=== PATIENT | female | born 1975 | race Caucasian/White ===

== ENCOUNTER 2016-10-20 17:46 | Inpatient (IN) | payer OTHER ==
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
--- NOTE | ~2016-10-20 | PN ---
Unit #: [id number] #: [id number] Patient: GEMINI BAER [id number] [facility] [address] [place] [address] [id number] I MR#: [id number] NAME: GEMINI BAER ROOM: P208 Age: 40 Sex: F Admission Date: 10/20/2016 : 1975 Attending Physician: Tristen Francisco M.D. Admitting Physician: Tristen Francisco M.D. Primary Care Physician: Generic Doctor Not In System [facility] PROGRESS NOTES DATE 10/21/2016 DISCUSSION Gemini Baer is a 40-year-old female, seen on 10/21/2016. The patient interviewed, chart reviewed, and obtained information from the nursing staff. The patient's mood sad, dysphoric, withdrawn, isolative, guarded. The patient's vital signs, 98.4, 60, and 92/58. Height, 5 feet 1 inch. REVIEW OF SYSTEMS Complete review of systems unremarkable. MENTAL STATUS EXAMINATION General appearance: Patient dressed casually. Attention span and concentration, fair. Oriented to time, place, and person. Mood and affect, sad and depressed. Speech, monotone. Thought process, concrete. The patient denied any thoughts of harming self or others but having suicidal ideations. Recent and remote memory, poor. Insight and judgment, poor. DIAGNOSES 1. Mood disorder, NOS. 2. Rule out major depressive disorder. 3. Polysubstance abuse. ASSESSMENT/PLAN Advised to continue with the current medication and therapeutic protocol and if needed consider further adjustment of medication. Dictated by... Mahsa Azevedo/leslie TD: 10/23/2016 10:47 JOB #: [id number] Unit #: [id number] #: [id number] Patient: GEMINI BAER PROGRESS NOTES Page 1 of 1 X Tristen Francisco MD X PROGRESS NOTE
--- NOTE | ~2016-10-20 | PN ---
Unit #: [id number] #: [id number] Patient: GEMINI BAER [id number] [facility] [address] [place] [address] [id number] I MR#: [id number] NAME: GEMINI BAER ROOM: [facility]8 Age: 40 Sex: F Admission Date: 10/20/2016 : 1975 Attending Physician: Tristen Francisco M.D. Admitting Physician: Tristen Francisco M.D. Primary Care Physician: Generic Doctor Not In System [facility] PROGRESS NOTES DATE 10/22/2016 DISCUSSION Gemini Baer is a 40-year-old female, seen on 10/22/2016. The patient interviewed, chart reviewed, and obtained information from the nursing staff. The patient's mood was sad and dysphoric, withdrawn, isolative, guarded, paranoid. The patient's vital signs are stable. The patient still reporting having withdrawal symptoms and depressed mood and anxiousness. REVIEW OF SYSTEMS Complete review of systems unremarkable. MENTAL STATUS EXAMINATION General appearance: Patient dressed casually. Attention span and concentration, fair. Oriented to place and person. Mood and affect, sad and dysphoric. Speech, monotone. Thought process, concrete. The patient denied any thoughts of harming self or others. Recent and remote memory, poor. Insight and judgment, poor. DIAGNOSIS Mood disorder, NOS. ASSESSMENT/PLAN Advised to continue with the current medication and therapeutic protocol and if needed consider further adjustment of medication. Dictated by... Mahsa Azevedo/leslie TD: 10/23/2016 11:36 JOB #: [id number] Unit #: [id number] #: [id number] Patient: GEMINI BAER PROGRESS NOTES Page 1 of 1 X Tristen Francisco MD PROGRESS NOTE
--- NOTE | ~2016-10-20 | DS ---
Unit #: [id number] #: [id number] Patient: VAL PEREZ [id number] [facility] [address] [place] [address] [id number] I MR#: [id number] NAME: VAL PEREZ ROOM: [facility] Age: 40 Sex: F Admission Date: 10/20/2016 : 1975 Discharge Date: 10/23/2016 Attending Physician: Tristen Francisco M.D. Primary Care Physician: Generic Doctor Not In System DISCHARGE SUMMARY REASON FOR ADMISSION Substance abuse and depression. DIAGNOSTIC STUDIES LABORATORY RESULTS: Unremarkable except albumin 3.2. HOSPITAL COURSE The patient was admitted to inpatient unit on 10/20/2016 and discharged on 10/23/2016. The patient was treated with group therapy, individual therapy, chemical dependency group, detox protocol and responded well with the above modalities of treatment. Subsequently, the patient was discharged with a plan to follow up in outpatient program. DISCHARGE MEDICATIONS Celexa 20 mg daily for depression, trazodone 50 mg at bedtime for sleep, Cleocin 300 mg t.i.d. for 7 days for infection. DISCHARGE DIAGNOSES Psychiatric: 1. Major depressive disorder, recurrent, severe, F33.2. 2. Opioid use disorder, severe, F11.20. 3. Cocaine use disorder, severe. 4. Cannabis abuse, moderate. Secondary diagnosis: Deferred. Medical diagnoses: Hypertension and skin infection. Stressors: Psychosocial stressors. DISCHARGE INSTRUCTIONS The patient to follow up in outpatient clinic as per social work associate. CONDITION ON DISCHARGE The patient was pleasant and cooperative. Denied any psychotic symptom or any suicidal ideation. PROGNOSIS Guarded. DIET AND ACTIVITY As tolerated. Unit #: [id number] #: [id number] Patient: VAL PEREZ Dictated by... Mahsa Azevedo/rodolfo TD: 10/23/2016 23:01 JOB #: [id number] DISCHARGE SUMMARY Page 1 of 1 X Tristen Francisco MD X DISCHARGE SUMMARY
--- NOTE | ~2016-10-20 | HP ---
Unit #: [id number] #: [id number] Patient: VAL PEREZ [id number] [facility] [address] [place] [address] [id number] I MR#: [id number] NAME: VAL PEREZ ROOM: P208 Age: 40 Sex: F Admission Date: 10/20/2016 : 1975 Attending Physician: Tristen Francisco M.D. Admitting Physician: Tristen Francisco M.D. Primary Care Physician: Generic Doctor Not In System HISTORY AND PHYSICAL HISTORY OF PRESENT ILLNESS The patient is a 40-year-old female admitted to [address] [place] [address] on 10/20/2016 after an overdose of heroin in the parking lot. PAST MEDICAL HISTORY The patient denies. PAST SURGICAL HISTORY 1. Finger surgery 2. Bilateral tubal ligation SOCIAL HISTORY The patient is employed at [employer]. She lives with her . She smokes one pack of cigarettes daily. Denies alcohol use. Smokes a fourth of an ounce of marijuana a day, uses a couple of grams of crack cocaine daily and heroin q day. FAMILY MEDICAL HISTORY Noncontributory. ALLERGIES Penicillin CURRENT MEDICATIONS Neurontin REVIEW OF SYSTEMS CONSTITUTIONAL: No fever or chills. HEENT: Denies any sore throat, ear pain or runny nose. CARDIOVASCULAR: Denies chest pain, irregular heart rhythm or palpitations. CHEST: Denies shortness of breath or cough. No hemoptysis. GASTROINTESTINAL: Denies nausea, vomiting, diarrhea or chronic constipation. ENDOCRINE: Denies history of increased thirst or urination. No recent significant weight loss or gain. GENITOURINARY: Denies dysuria, frequency, or hematuria. SKIN: Denies any rashes. HEMATOLOGIC: Denies history of increased bleeding or bruising. MUSCULOSKELETAL: Denies any hot, swollen joints. No generalized muscle pain. NEUROLOGIC: Denies problems with vision or speech. No frequent, severe headaches. No numbness, tingling or weakness in any extremities. Denies loss of bladder or bowel control. Unit #: [id number] #: [id number] Patient: VAL PEREZ PHYSICAL EXAM GENERAL: She is awake, alert and oriented in no acute distress. VITAL SIGNS: Temperature 98.4, heart rate 82, respiration 16, blood pressure 125/82. HEIGHT: 5'1". WEIGHT: 170 pounds. SKIN: Warm and dry without rash or lesion. HEENT: Normocephalic. TMs not viewed. Oral and nasal passages clear. Conjunctivae clear. PERRLA. EOMs intact. NECK: Supple without lymphadenopathy or thyromegaly. HEART: Regular rate and rhythm without murmur. LUNGS: Clear. ABDOMEN: Soft, nontender. : Not done. EXTREMITIES: No evidence of cyanosis, clubbing or edema. Moves all without focal deficit. NEUROLOGICAL: Grossly within normal limits. Cranial Nerves: II: Visual reardon are intact. III, IV AND : Extraocular movements are intact. Pupils are equal, round and reactive to light. V: Facial sensation is grossly normal. VII: Facial movements and expression are normal. VIII: Auditory acuity grossly intact. IX, X: Uvula is midline. Phonation is normal. XI: Patient shrugs shoulders and turns head normally. XII: Tongue protrudes in the midline. Sensory and Motor Function: Sensory and motor sensation is grossly normal. Motor: moves all extremities well. IMPRESSION 1. Psychiatric admission. 2. Polysubstance abuse. 3. Nicotine dependence. RECOMMENDATIONS Psychiatric per psychiatrist. MEDICAL: No contraindication to participate in facility activities. MEDICAL PROGNOSIS Good. MEDICAL CONDITION Stable. Dictated by... Sonali Fagan/jaron TD: 10/22/2016 00:50 JOB #: [id number] Unit #: [id number] #: [id number] Patient: VAL PEREZ HISTORY AND PHYSICAL Page 1 of 1 X CANDELARIA BELLE APRN HISTORY AND PHYSICAL
[2016-10-22 12:27] LABS: BASOPHIL% 0.5 % (0-2.5); EOSINOPHIL# 0.1 X10e3 (0-0.7); EOSINOPHIL% 1.8 % (0.0-7.0); HEMATOCRIT 38.8 % (35.0-45.0); HEMOGLOBIN 12.7 gm/dL (12.0-16.0); LYMPHOCYTE# 1.4 X10e3 (1.0-3.5); LYMPHOCYTE% 23.5 % (17.0-45.0); MEAN CELL VOLUME 92.2 FL (83-96); MEAN CORPUSCULAR HEMOGLOBIN 30.3 PG (28-34); MEAN CORPUSCULAR HGB CONC 32.8 g/dL (30-36); MEAN PLATELET VOLUME 8.9 FL (6.5-11.5); MONOCYTE# 0.7 X10e3 (0-1.0); MONOCYTE% 12.4 % (3.0-12.0); NEUTROPHIL# 3.7 X10e3 (1.5-7.1); NEUTROPHIL% 61.8 % (40-75); PLATELET COUNT 261 X10e3 (140-420); RED BLOOD COUNT 4.21 X10e (3.90-5.30); RED CELL DISTRIBUTION WIDTH 13.1 % (11.0-15.5)
[2016-10-22 12:28] LABS: DIFF IND NO
[2016-10-22 12:39] LABS: ALBUMIN SERUM 3.2 g/dL (3.5-5.0); BILIRUBIN,TOTAL 0.2 mg/dL (0.2-2.0); BUN/CREATININE RATIO 11.81; CREATININE SERUM 1.1 mg/dL (0.6-1.4); GLOM FILT RATE Estimated 63.2 mL/min (>60); PROTEIN TOTAL SERUM 6.1 g/dL (6.0-8.3)
[2016-10-22 12:47] LABS: THYROID STIMULATING HORMONE 0.22 uIU/ml (0.34-5.60)
[2016-10-22 12:54] LABS: FREE THYROXIN (T4) 0.77 ng/dL (0.58-1.64)
== END 2016-10-23 12:52 | DRG 885 ==
LOC: P2S 17:46
PROVIDERS: Psychiatry & Neurology Psychiatry
PROC: HZ2ZZZZ Detoxification Services for Substance Abuse Treatment (ICD-10-PCS; principal; 2016-10-20)
DX: F33.2 Major depressive disorder, recurrent severe without psychotic features (principal); F11.20 Opioid dependence, uncomplicated; I10 Essential (primary) hypertension; F14.20 Cocaine dependence, uncomplicated; F12.220 Cannabis dependence with intoxication, uncomplicated; Z98.51 Tubal ligation status; Z88.0 Allergy status to penicillin; L08.9 Local infection of the skin and subcutaneous tissue, unspecified; F17.210 Nicotine dependence, cigarettes, uncomplicated
CPT/HCPCS: 80053; 84439; 84443; 84703; 85025; 86592

== ENCOUNTER 2017-01-25 03:00 | Inpatient (IN) | payer OTHER ==
[~2017-01-25] VITALS: Ht 154.9 cm; Wt 72.6 kg
--- NOTE | ~2017-01-25 | PN ---
Unit #: [id number] #: [id number] Patient: GEMINI BAER [id number] [facility] [address] [place] [address] [id number] MR#: [id number] NAME: GEMINI BAER. ROOM: [facility] Age: 41 Sex: F Admission Date: 01/25/2017 : 1975 Attending Physician: Tristen Francisco M.D. Admitting Physician: Tristen Francisco M.D. Primary Care Physician: Primary Care Physician Adia CRAROLL NOTES DATE 01/26/2017 DISCUSSION Ms. Gemini Baer is a 41-year-old female, seen on 01/26/2017. The patient interviewed, chart reviewed, and obtained information from the nursing staff. The patient continues to be seclusive, isolative, guarded, paranoid, flat affect, sad and dysphoric. Vital signs, 98.4, 56, 124/75. The patient denied any complaints, except sad and depressed. REVIEW OF SYSTEMS Complete review of systems unremarkable. MENTAL STATUS EXAMINATION General appearance: Patient dressed casually. Attention span and concentration, poor. Orientation in self and place. Mood and affect, flat, sad, dysphoric. Speech, monotone. Thought process, concrete. The patient denied any thoughts of harming self or others but withdrawn, isolative, flat affect. Recent and remote memory, poor. Insight and judgment, poor. DIAGNOSES 1. Opiate use disorder, severe. 2. Cocaine use disorder, severe. 3. Cannabis abuse disorder, [id number]. 4. Major depressive disorder, recurrent. ASSESSMENT/PLAN Advised to continue with the current medication and therapeutic protocol, and if needed consider further adjustment of medication, and add Celexa 20 mg daily for depression and trazodone 50 mg at bedtime for sleep. Dictated by... Mahsa Azevedo/leslie Unit #: [id number] #: [id number] Patient: GEMINI BAER TD: 01/28/2017 07:36 [facility] #: [id number] [facility] Page 1 of 1 X Tristen Francisco MD PROGRESS NOTE
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
--- NOTE | ~2017-01-25 | HP ---
Unit #: [id number] #: [id number] Patient: GEMINI PEREZ [id number] [place] [address] [id number] MR#: [id number] NAME: GEMINI PEREZ. ROOM: 80 Age: 41 Sex: F Admission Date: 01/25/2017 : 1975 Attending Physician: Tristen Francisco M.D. Admitting Physician: Tristen Francisco M.D. Primary Care Physician: Primary Care Physician No HISTORY AND PHYSICAL HISTORY OF PRESENT ILLNESS Gemini is a 41-year-old female admitted on 01/25/2017 to [facility] for detox from heroin. PAST MEDICAL HISTORY None. PAST SURGICAL HISTORY 1. Bilateral tubal ligation. 2. I and D of an abscess on her right arm. ALLERGIES Penicillin. SOCIAL HISTORY Smokes 2 pack of cigarettes daily. No alcohol use. Does report daily use of IV heroin and she is currently single and homeless. FAMILY HISTORY Noncontributory. REVIEW OF SYSTEMS CONSTITUTIONAL: No fever or chills. HEENT: Denies any sore throat, ear pain or runny nose. CARDIOVASCULAR: Denies chest pain, irregular heart rhythm or palpitations. CHEST: Denies shortness of breath or cough. No hemoptysis. GASTROINTESTINAL: Denies nausea, vomiting, diarrhea or chronic constipation. ENDOCRINE: Denies history of increased thirst or urination. No recent significant weight loss or gain. GENITOURINARY: Denies dysuria, frequency, or hematuria. SKIN: Denies any rashes. HEMATOLOGIC: Denies history of increased bleeding or bruising. MUSCULOSKELETAL: Denies any hot, swollen joints. No generalized muscle pain. NEUROLOGIC: Denies problems with vision or speech. No frequent, severe headaches. No numbness, tingling or weakness in any extremities. Denies loss of bladder or bowel control. CURRENT MEDICATIONS None. PHYSICAL EXAMINATION Unit #: [id number] #: [id number] Patient: GEMINI PEREZ GENERAL: Alert, oriented, in no acute distress. VITAL SIGNS: Blood pressure 104/66, heart rate 74, respirations 16, temperature 98.5. HEIGHT: 5 feet 1. WEIGHT: 160 pounds. SKIN: Warm and dry without rash or lesion. HEENT: Normocephalic. TMs not viewed. Oral and nasal passages clear. Conjunctivae clear. PERRLA. EOMs intact. NECK: Supple without lymphadenopathy or thyromegaly. HEART: Regular rate and rhythm without murmur. LUNGS: Clear. ABDOMEN: Soft, nontender, without masses or hepatosplenomegaly. : Not done. EXTREMITIES: No evidence of cyanosis, clubbing or edema. Moves all without focal deficit. NEUROLOGICAL: Grossly within normal limits. Cranial Nerves: II: Visual reardon are intact. III, IV AND : Extraocular movements are intact. Pupils are equal, round and reactive to light. V: Facial sensation is grossly normal. VII: Facial movements and expression are normal. VIII: Auditory acuity grossly intact. IX, X: Uvula is midline. Phonation is normal. XI: Patient shrugs shoulders and turns head normally. XII: Tongue protrudes in the midline. Sensory and Motor Function: Sensory and motor sensation is grossly normal. Motor: moves all extremities well. Coordination: Gait is normal. Deep Tendon Reflexes: Intact. IMPRESSION Psychiatric admission. RECOMMENDATIONS PSYCHIATRIC: Per psychiatrist. MEDICAL: No contraindication to participate in facility's activities. MEDICAL PROGNOSIS Good. MEDICAL CONDITION Stable. Dictated by... Sonali Barrios/joel TD: 01/25/2017 22:48 JOB #: [id number] Unit #: [id number] #: [id number] Patient: GEMINI PEREZ HISTORY AND PHYSICAL Page 1 of 1 X WESLY LLAMAS APRN X HISTORY AND PHYSICAL
--- NOTE | ~2017-01-25 | DS ---
Unit #: [id number] #: [id number] Patient: VAL PEREZ [id number] [facility] [address] [place] [address] [id number] MR#: [id number] NAME: VAL PEREZ. ROOM: [facility] Age: 41 Sex: F Admission Date: 01/25/2017 : 1975 Discharge Date: 01/27/2017 Attending Physician: Tristen Francisco M.D. DISCHARGE SUMMARY REASON FOR ADMISSION Heroin detox. DIAGNOSTIC STUDIES LABORATORY RESULTS: Urine drug screen positive for multiple drugs. HOSPITAL COURSE The patient was admitted to inpatient unit on 01/25/2017 and discharged on 01/27/2017. The patient was treated on the inpatient unit with chemical dependency group, expressive therapy, medication management, and detox protocol, structured milieu. The patient was responsive to treatment. Subsequently, the patient was discharged with a plan to follow up in outpatient program. DISCHARGE MEDICATIONS Neurontin 300 mg t.i.d. for 5 days. DISCHARGE DIAGNOSES Psychiatric: Opioid use disorder, severe, F11.20; cocaine use disorder, severe, F14.20; amphetamine use disorder, moderate to severe, F15.20; cannabis abuse, moderate, F12.20; mood disorder, not otherwise specified, F32.9. Secondary diagnosis: Deferred. Medical diagnosis: None. Stressors: Psychosocial stressors. DISCHARGE INSTRUCTIONS The patient to follow up in outpatient program as per manager social services. CONDITION ON DISCHARGE The patient was pleasant and cooperative. Denied any psychotic symptom or any suicidal ideation. PROGNOSIS Guarded. DIET AND ACTIVITY As tolerated. Unit #: [id number] #: [id number] Patient: VAL PEREZ Dictated by... Mahsa Azevedo/rodolfo TD: 01/27/2017 16:38 JOB #: [id number] DISCHARGE SUMMARY Page 1 of 1 X Tristen Francisco MD X DISCHARGE SUMMARY
== END 2017-01-27 13:10 | disposition home or self-care (01) | DRG 897 ==
LOC: P1E 05:12
PROC: HZ2ZZZZ Detoxification Services for Substance Abuse Treatment (ICD-10-PCS; principal; 2017-01-25)
DX: F11.20 Opioid dependence, uncomplicated (principal); F14.20 Cocaine dependence, uncomplicated; F15.20 Other stimulant dependence, uncomplicated; F12.20 Cannabis dependence, uncomplicated; F39 Unspecified mood [affective] disorder; F32.9 Major depressive disorder, single episode, unspecified; Z88.0 Allergy status to penicillin; F17.210 Nicotine dependence, cigarettes, uncomplicated; Z59.0 Homelessness